=== PATIENT | male | born 1990 | race Caucasian/White ===

== ENCOUNTER 2018-07-17 17:46 | Emergency (ER) | payer OTHER ==
[~2018-07-17] VITALS: Ht 160 cm; Wt 63.0 kg
[2018-07-18] MEDS ORDERED: KETOROLAC 15MG/ML VIAL IM ONE (00:15)
[2018-07-18 01:59] VITALS: BP 124/70
== END 2018-07-18 02:00 | disposition home or self-care (01) ==
LOC: ER 17:46
DX: S29.012A Strain of muscle and tendon of back wall of thorax, initial encounter (principal); K51.90 Ulcerative colitis, unspecified, without complications; X50.0XXA Overexertion from strenuous movement or load, initial encounter; Y93.89 Activity, other specified; Y92.89 Other specified places as the place of occurrence of the external cause; Y99.8 Other external cause status
CPT/HCPCS: 71046; 96372; 99283; J1885